=== PATIENT | male | born 1930 | race Two or more races ===

== ENCOUNTER 2016-11-14 08:38 | Day surgery (SDC) | payer MEDICARE | END 2016-11-14 12:53 | disposition home or self-care (01) | LOC: DS 08:38 | PROVIDERS: ATTEND Surgery | DX: K63.89 Other specified diseases of intestine (principal); K29.80 Duodenitis without bleeding; Z90.5 Acquired absence of kidney | CPT/HCPCS: 43239; 45380; 88305 ×2; 88313; 88342; J1100; J2704 ==